=== PATIENT | male | born 2000 | race Caucasian/White ===

== ENCOUNTER 2024-01-23 12:28 | Emergency (ER) | payer BC ==
[~2024-01-23] VITALS: Ht 175.3 cm; Wt 86.2 kg
[2024-01-23] MEDS ORDERED: KEFLEX125 MG/5 M PO (13:05)
[2024-01-23 13:37] VITALS: PULSE 70; RESP 16; TEMP 98.8; O2SAT 98
== END 2024-01-23 13:37 | disposition home or self-care (01) ==
LOC: FSED 12:50
DX: S61.412A Laceration without foreign body of left hand, initial encounter (principal); W22.8XXA Striking against or struck by other objects, initial encounter; Y92.89 Other specified places as the place of occurrence of the external cause
CPT/HCPCS: 99283